=== PATIENT | female | born 1990 | race Caucasian/White ===

== ENCOUNTER 2024-01-16 22:04 | Emergency (ER) | payer MEDICAID ==
[~2024-01-16] VITALS: Ht 152.4 cm; Wt 57.0 kg
[2024-01-16 22:08] VITALS: BP 123/76; RESP 18; TEMP 98.3; O2SAT 99
[2024-01-16 22:10] VITALS: PULSE 139
== END 2024-01-17 00:45 | disposition home or self-care (01) ==
LOC: ER 22:04
DX: R00.0 Tachycardia, unspecified (principal); N12 Tubulo-interstitial nephritis, not specified as acute or chronic; Z53.21 Procedure and treatment not carried out due to patient leaving prior to being seen by health care provider
CPT/HCPCS: 99281